=== PATIENT | male | born 1975 | race Caucasian/White ===

== ENCOUNTER 2023-01-22 06:16 | Day surgery (SDC) | payer SELFPAY, OTHER ==
[2023-01-22] VITALS (7 sets, daily range): BP systolic 99–115; BP diastolic 46–74; PULSE 60–65; RESP 16–18; TEMP 36.2–36.5; O2SAT 93–96; BMI 31.4
--- NOTE | 2023-01-22 | LIP_PTH ---
PATIENT: CLAUDETTE YEN LOC: [facility] [place] U#:[id number] AGE/SX: 47/M ROOM: RE01/22/[address]: Dr. Ryley Ga MD : 1975 BED: DIS: 01/22/2023 SPEC #: [id number] RECD: 01/22/23 15:30 STATUS: ERMIAS MICKEY #: [id number] JENNYFER: 01/22/23 00:[address]: Ryley Ga DEPT: SURGICAL PATHOLOGY RECD BY: Milton Tran ENTERED: 01/23/23 13:03 SP TYPE: LIPOMA OTHR DR: LEE Fraire Tissues: A - Soft tissues, NOS B - Soft tissues, NOS C - Soft tissues, NOS D - Soft tissues, NOS Procedures: Surgery Specimen Level III HEADER OPERATION: Excision of bilateral upper and bilateral lower extremity PRE-OP DIAGNOSIS: Multiple lipomas TISSUE SUBMITTED: A. Right anterior thigh lipoma, B. Dorsal right forearm lipoma, C. Roberto-lateral left thigh lipoma, D. Dorsal aspect left upper arm lipoma MICROSCOPIC DIAGNOSIS A. Right anterior thigh lipoma, biopsy: Angiolipoma. B. Dorsal right forearm lipoma, biopsy: Angiolipoma. C. Roberto-lateral left thigh lipoma, biopsy: Angiolipoma. D. Dorsal aspect left upper arm lipoma, biopsy: Angiolipoma. AM:cornelio 01/24/23 MICROSCOPIC DESCRIPTION Slides are reviewed. GROSS DESCRIPTION A. Received in fixative is one container labeled with the patient name and designated lipoma. The specimen consists of a lobulated piece of adipose tissue measuring 3 x 1.5 x 1.5 cm. Sections reveal yellow adipose cut surfaces without areas of hemorrhage, necrosis or cystic degeneration. Fabrication Supervisor sections are submitted in one cassette. B. Received in fixative is one container labeled with the patient name and designated lipoma. The specimen consists of a lobulated piece of adipose tissue measuring 1.5 x 1 x 0.5 cm. Sections reveal yellow adipose cut surfaces without areas of hemorrhage, necrosis or cystic degeneration. Entire specimen is submitted in one cassette. C. Received in fixative is one container labeled with the patient name and designated lipoma. The specimen consists of a lobulated piece of adipose tissue measuring 1.5 x 1.5 x 1.0 cm. The external surface is inked. Sections reveal yellow adipose cut surfaces without areas of hemorrhage, necrosis or cystic degeneration. The specimen is bisected and entirely in one cassette. D. Received in fixative is one container labeled with the patient name and designated lipoma. The specimen consists of a lobulated piece of adipose tissue measuring 1 x 1 x 0.5 cm. Sections reveal yellow adipose cut surfaces without areas of hemorrhage, necrosis, or cystic degeneration. The specimen is bisected and entirely in one cassette. /SJ:cc 01/23/23 TC1: CPT:10716 x4
[2023-01-22] MEDS: Lactated Ringers 1,000 ML 15 ML IV (06:59)
--- NOTE | 2023-01-22 08:00 | PCM.HP.BLA ---
History and Physical Date of Admission: 01/22/23 OFFICE VISIT Date of Service: 01/09/23 MR#: [id number] Acct: [id number] Name: CLAUDETTE WILLINGHAM Rep #: [id number] : 1975 Provider: Dr. Ryley Ga MD Age/Sex: 47/M Location: [facility] Status: Signed Intake Vital Signs 01/10/2308:36 Height 5 ft 6 in Weight: 197 lb 8 oz BMI 31.8 BP 123/76 H Blood Pressure Location Rt brachial Position Sitting Respiration 17 Pulse 71 Pulse Source Monitor Temp 97.5 F L Temp Source Tympanic Intake Visit Reasons: LIPOMA ON ARM Is patient in pain?: Yes Allergies No Known Allergies Allergy (Unverified 01/09/23 12:06) [facility] Medical History (Updated 01/09/23 @ 20:[address] Ryley Ga MD) Screening due HPI HPI HPI: Patient is a 47-year-old male who presents for evaluation of numerous lipomas. He presents valuation from [employer]. He presents today in the company of his . He states that he has noticed these masses for up to the last 5 to 10 years. He has not noticed any significant growth of 2 is on his bilateral upper extremities, but admits to some growth initially of a lesion noted on his right hip. He denies any associated pain or discomfort. He has not experienced any redness, drainage, or signs of infection with any of the sites. He has never undergone excision of prior lipoma. He states he simply presents today to seek a second opinion about the management of these findings. When asked about the cause of the soft tissue lesions, I did introduce the association with polyposis syndromes and this led to a conversation around patient's GI history. He notes a prior evaluation with Cologuard, but denies any previous evaluation by colonoscopy. He does have a family history of a maternal aunt who was diagnosed with colon cancer in her late 50s and ultimately succumbed to this diagnosis. He is unfamiliar with any familial diagnoses of inflammatory bowel disease or diverticulitis. Personally he denies any history of constipation, diarrhea, or blood per rectum. In continuing this history Mr. Willingham admits to a infrequent experience of heartburn in response to drinking too much coffee. He denies any history of reflux. Pertinent surgical history includes: Prior repair of inguinal hernia ROS General General: No weight change, appetite, fatigue, colon cancer, breast cancer or weakness HEENT HEENT: No difficulty swallowing, eye injury, eye surgery, swollen glands or hoarseness Endo Endocrine: No thyroid disease, diabetes mellitus, thyroid cancer, Hair loss, heat intolerance or cold intolerance Skin Skin: No rash or changing moles Breast Breast: No left breast lump, right breast lump, nipple discharge, breast pain, abnormal mammogram, abnormal US or breast enlargement Musc Musculoskeletal: No back problems, arthritis, rheumatoid arthritis, gout or joint pain Cardio Cardiovascular: No murmur, pacemaker, heart disease, atrial fibrillation, high blood pressure, heart attack, heart stent, palpitations, shortness of breat with exertion or chest pain Psych Psychiatric: No depression, anxiety or hearing voices Resp Respiratory: No shortness of breath, No sleep apnea, No cough, No COPD, No asthma, No emphysema and No wheezing Gastro Gastrointestinal: No abdominal pain, No nausea or vomiting, No diarrhea, No constipation, No blood in stool, No acid reflux, No hemorrhoids, No ulcers, No gallbladder problem and No black,tarry stools Robert Hematologic: No blood thinners, No blood disorders, No bleeding, No anemia and No blood clots Neuro Neurologic: No system reviewed and no additional complaints, except as documented, No as per HPI, No abnormal gait, No abnormal hearing, No abnormal movements, No abnormal speech, No behavioral changes, No burning sensations, No confusion, No convulsions, No disequilibrium, No dizziness, No localized weakness, No frequent falls, No headache(s), No lack of coordination, No loss of vision, No memory loss, No numbness, No other visual disturbances, No radicular pain, No restless legs, No sensory deficit, No syncope, No tingling, No tremor(s), No weakness and No other Exam Const General: cooperative, comfortable and no acute distress Orientation: alert, awake and oriented x3 Resp Effort & Inspection: normal respiratory effort GI Other: Mildly obese, no visible scars, visible umbilical herniation containing fat with an estimated fascial defect of 1.5 cm. Tenderness with this exam, but otherwise nontender to palpation x4 quadrants Extrem Other: Soft subcutaneous mass is estimated to be 1.5 cm in diameter located along patient's right dorsal forearm and left upper arm. A third lesion estimated at 4 cm x 2 cm is located on the anterior aspect of patient's right hip, superficially. There is no tenderness with exam of these areas. This latter area appears to be outside of the expected vicinity of the inguinal lymph node chain. Assessment and Plan Assessment and Plan (1) Multiple lipomas: Status: Acute Comment: This is a 47-year-old male who presents with probable multiple lipomas of the bilateral upper extremities as well as the right hip. Following the conclusion of our visit, I am informed by our operating room scheduler that the patient also has a probable lesion of his left lower extremity. He denies any significant symptoms or growth, but does wish for excision. Given the multiplicity of these lesions as well as the potential for some depth and some discomfort with removal of his right hip lesion, in particular, I have recommended excision under sedation in the operating room. Mr. Willingham accepts this mentation and procedure to be scheduled Plan: Excision of multiple lipomas under MAC sedation to be scheduled (2) Family hx of colon cancer requiring screening colonoscopy: Status: Acute Comment: 47-year-old male with history of multiple soft tissue masses and family history of colon cancer in a maternal aunt diagnosed before the age of 60. Given patient's present age and his family history I have recommended pursuing screening colonoscopy. Mr. Willingham states he sees the merit and this recommendation and wishes to proceed as described. Therefore I detailed the need for a preprocedure prep and discussed periprocedural logistics. Plan: Screening colonoscopy under local MAC. Date to be set. (3) Umbilical hernia without obstruction and without gangrene: Status: Acute Comment: Incidental finding of fat incarcerated umbilical hernia. This is a small fascial defect estimated at 1.5 cm. Intervention recommended, but on nonurgent basis. Patient wishes to consider this further. Red flag symptoms provided. Plan: Watchful waiting for now based on patient preference I have examined the patient and the H&P has been reviewed. There are no clinical changes since date of exam. Post procedure activity restrictions and wound care instructions were reviewed. The lipomatous sites were also marked to facilitate localization during the procedure. Neither patient nor spouse have any further questions. Proceed to the operating room for excision of lipomas as discussed above.
[2023-01-22] MEDS: Cefazolin 2 GM in 0.9% Normal Saline 100 ML IV (08:04)
[2023-01-22] MEDS: Bupivacaine 0.25% 30 ML Vial (08:38)
--- NOTE | 2023-01-22 09:08 | PCM.OPRPT ---
Report of Operation Date of Procedure: 01/22/23 Pre-Operative Diagnosis: Extremity lipomatous masses x4 Post-Operative Diagnosis: Same Surgery/Procedure Performed:: Excision of extremity subcutaneous masses x4 Description of Surgical Findings:: ? Lipomatous masses of the right anterior thigh, left anterior lateral thigh, dorsal right forearm and dorsal left upper arm Surgeon: Ryley Ga Type of Anesthesia: General/Supplemental Specimen's removed: 1. Right anterior thigh mass 2. Dorsal right forearm mass 3. Anterior lateral left thigh mass 4. Dorsal aspect of left upper arm mass Drains: None Estimated Blood Loss (mL): 5 Description of Procedure: After appropriate identification the preoperative holding area patient was brought to the operating room where he was positioned in a supine position. There he was administered a local MAC. He was then position further with his arms crossing his chest to expose there dorsal aspects. His arms were secured in this position with soft wrist restraints tied to the contralateral aspect of the operating room table. Pressure points were padded with foam. Preoperative antibiotics were infused. His bilateral upper and lower extremities were exposed and prepped around the areas that had been preoperatively marked. He was then draped in usual sterile fashion using towels. A formal timeout followed to confirm both patient and procedure. I then instilled a wheal local anesthetic (0.25% bupivacaine plain) and made an approximately 3 cm incision over the anterior right thigh subcutaneous mass. This was carried deeply through the dermal tissue with use of electrocautery to maintain hemostasis as we proceeded. I then visualized the lipomatous subcutaneous mass and used a combination of blunt dissection and energy to free this mass from the surrounding soft tissue. Mass was then completely extirpated and passed off the operative field for pathology. The resulting cavity was inspected for hemostasis and was found to be largely intact. The cavity was packed and we proceeded to move onto the right upper extremity, left lower extremity, and left upper extremity, respectively. The same sequence of instilling a wheal of local anesthetic followed by incision and sharp dissection followed with each site. A total volume of 10 mL 0.25% bupivacaine was used. All incisions were approximately 3 cm in length. After ensuring hemostasis of each cavity, 3-0 Vicryl was used to perform interrupted deep dermal sutures and the skin was closed with a running 4-0 Monocryl using a subcuticular technique. Dermabond was applied and the patient's sedation was lightened and he was transferred to the PACU bed for his ongoing care. Grafts/Implants Used: None Complications None Admit VTE Documentation VTE Mechan Device Prophylaxis: SCD's
--- NOTE | 2023-01-22 10:07 | DCINST_ITS ---
Discharge Instructions Diet Discharge Diet: No restrictions Activity Discharge Activity: May Not Drive (No driving while using narcotic pain medication) and May Shower Ice area for (Minutes): 20 Lifting Restrictions: Limit lifting to less than 15 pounds for 2 weeks postop Dressing / Incision Call your doctor if your incision/area has: Continuous Slow Oozing, Increased Pain/ Swelling, Increased Redness, Foul Smelling Discharge and Swelling at the incision site Call your doctor if you observe: Fever of 101 or Higher, Numbness or Tingling and Uncontrolled pain Cleanse incision/area with: Soap & Water Follow Up Care Please Follow Up With: Ryley Ga MD When: 1.5-2 weeks postop Test Results: Test results from this visit will be discussed in further detail at your follow- up appointment, if applicable. Discharge Plan Admission Primary Reason for Your Visit: Excision of subcutaneous masses Attending Provider: Ryley Ga Primary Care Provider: Trey Ramsey Discharge Orders/Prescriptions Prescriptions: New hydrocodone-acetaminophen 5-325 mg tablet 1 tab PO Q6H PRN (Reason: pain) 3 Days Qty: 10 0RF No Action NK Referrals / Follow Up: Trey Ramsey PA [Primary Care Provider] - Disposition Disposition (needs filled in before D/C Order can be placed): Home, Self Care
== END 2023-01-22 10:19 | disposition home or self-care (01) ==
LOC: SDC 06:23 → AC 06:23
PROVIDERS: PCP Physician Assistant; Referring Provider Surgery; Visit Provider Surgery
PROC: (CPT 11406; principal; 2023-01-22 07:45)
DX: D17.9 Benign lipomatous neoplasm, unspecified (principal); R12 Heartburn; Z80.0 Family history of malignant neoplasm of digestive organs; Z89.029 Acquired absence of unspecified finger(s); Z87.19 Personal history of other diseases of the digestive system
CPT/HCPCS: 11406; 88304; J7120; J2405

== ENCOUNTER 2023-02-07 12:19 | Day surgery (SDC) | payer SELFPAY, OTHER ==
[2023-02-07] VITALS (7 sets, daily range): BP systolic 95–121; BP diastolic 51–61; PULSE 53–64; RESP 16; TEMP 36.5–36.7; O2SAT 97–99; BMI 30.9
[2023-02-07] MEDS: Lactated Ringers 1,000 ML 15 ML IV (12:49)
--- NOTE | 2023-02-07 13:30 | COLBX_PTH ---
PATIENT: CLAUDETTE YEN LOC: [facility] U#:[id number] AGE/SX: 47/M ROOM: RE02/07/[address]: Dr. Ryley Ga MD : 1975 BED: DIS: 02/07/2023 SPEC #: [id number] RECD: 02/07/23 14:27 STATUS: ERMIAS MICKEY #: [id number] JENNYFER: 02/07/23 13:[address]: Ryley Ga DEPT: SURGICAL PATHOLOGY RECD BY: Wen Lloyd ENTERED: 02/10/23 09:30 SP TYPE: COLON BX OTHR DR: LEE Fraire Tissues: A - Cecum, NOS B - Transverse colon C - Descending colon D - Sigmoid colon biopsy Procedures: Surgery Specimen Level IV HEADER OPERATION: Colonoscopy (MAC), biopsy PRE-OP DIAGNOSIS: Family history of colon cancer, screening TISSUE SUBMITTED: A - Cecal mucosa biopsy, B - Distal transverse biopsy, C - Descending biopsy, D - Sigmoid biopsy MICROSCOPIC DIAGNOSIS A. Cecal mucosa, biopsy: Melanosis coli. B. Distal transverse colon, biopsy: Melanosis coli. C. Descending colon, biopsy: Melanosis coli. D. Sigmoid colon, biopsy: Melanosis coli. AM:nichelle 02/11/2023 MICROSCOPIC DESCRIPTION Slides are reviewed. GROSS DESCRIPTION A - Received in fixative is one container labeled with the patient's name and designated cecal mucosa biopsy. The specimen consists of multiple irregular fragments of light sharpe soft tissue that in aggregate measure 1.0 x 0.3 x 0.1 cm. The specimen is totally submitted in one cassette. B - Received in fixative is one container labeled with the patient's name and designated distal transverse biopsy. The specimen consists of two irregular fragments of light sharpe soft tissue that in aggregate measure 0.6 x 0.3 x 0.1 cm. The specimen is totally submitted in one cassette. C - Received in fixative is one container labeled with the patient's name and designated descending biopsy. The specimen consists of two irregular fragments of light sharpe soft tissue that in aggregate measure 0.6 x 0.3 x 0.1 cm. The specimen is totally submitted in one cassette. D - Received in fixative is one container labeled with the patient's name and designated sigmoid biopsy. The specimen consists of multiple irregular fragments of light sharpe soft tissue that in aggregate measure 0.8 x 0.3 x 0.1 cm. The specimen is totally submitted in one cassette. / SJ:nichelle 02/10/2023 TC:5 CPT: 27379 x4
--- NOTE | 2023-02-07 13:34 | HP.PCM_ITS ---
History and Physical Date of Admission: 02/07/23 Date of Service: 01/09/23 MR#: [id number] Acct: [id number] Name: CLAUDETTE WILLINGHAM Rep #: [id number] : 1975 Provider: Dr. Ryley Ga MD Age/Sex: 47/M Location: [facility] Status: Signed Intake Vital Signs 01/10/2308:36 Height 5 ft 6 in Weight: 197 lb 8 oz BMI 31.8 BP 123/76 H Blood Pressure Location Rt brachial Position Sitting Respiration 17 Pulse 71 Pulse Source Monitor Temp 97.5 F L Temp Source Tympanic Intake Visit Reasons: LIPOMA ON ARM Is patient in pain?: Yes Allergies No Known Allergies Allergy (Unverified 01/09/23 12:06) [facility] Medical History (Updated 01/09/23 @ 20:[address] Ryley Ga MD) Screening due HPI HPI HPI: Patient is a 47-year-old male who presents for evaluation of numerous lipomas. He presents valuation from [employer]. He presents today in the company of his . He states that he has noticed these masses for up to the last 5 to 10 years. He has not noticed any significant growth of 2 is on his bilateral upper extremities, but admits to some growth initially of a lesion noted on his right hip. He denies any associated pain or discomfort. He has not experienced any redness, drainage, or signs of infection with any of the sites. He has never undergone excision of prior lipoma. He states he simply presents today to seek a second opinion about the management of these findings. When asked about the cause of the soft tissue lesions, I did introduce the association with polyposis syndromes and this led to a conversation around patient's GI history. He notes a prior evaluation with Cologuard, but denies any previous evaluation by colonoscopy. He does have a family history of a maternal aunt who was diagnosed with colon cancer in her late 50s and ultimately succumbed to this diagnosis. He is unfamiliar with any familial diagnoses of inflammatory bowel disease or diverticulitis. Personally he denies any history of constipation, diarrhea, or blood per rectum. In continuing this history Mr. Willingham admits to a infrequent experience of heartburn in response to drinking too much coffee. He denies any history of reflux. Pertinent surgical history includes: Prior repair of inguinal hernia ROS General General: No weight change, appetite, fatigue, colon cancer, breast cancer or weakness HEENT HEENT: No difficulty swallowing, eye injury, eye surgery, swollen glands or hoarseness Endo Endocrine: No thyroid disease, diabetes mellitus, thyroid cancer, Hair loss, heat intolerance or cold intolerance Skin Skin: No rash or changing moles Breast Breast: No left breast lump, right breast lump, nipple discharge, breast pain, abnormal mammogram, abnormal US or breast enlargement Musc Musculoskeletal: No back problems, arthritis, rheumatoid arthritis, gout or joint pain Cardio Cardiovascular: No murmur, pacemaker, heart disease, atrial fibrillation, high blood pressure, heart attack, heart stent, palpitations, shortness of breat with exertion or chest pain Psych Psychiatric: No depression, anxiety or hearing voices Resp Respiratory: No shortness of breath, No sleep apnea, No cough, No COPD, No asthma, No emphysema and No wheezing Gastro Gastrointestinal: No abdominal pain, No nausea or vomiting, No diarrhea, No constipation, No blood in stool, No acid reflux, No hemorrhoids, No ulcers, No gallbladder problem and No black,tarry stools Robert Hematologic: No blood thinners, No blood disorders, No bleeding, No anemia and No blood clots Neuro Neurologic: No system reviewed and no additional complaints, except as documented, No as per HPI, No abnormal gait, No abnormal hearing, No abnormal movements, No abnormal speech, No behavioral changes, No burning sensations, No confusion, No convulsions, No disequilibrium, No dizziness, No localized weakness, No frequent falls, No headache(s), No lack of coordination, No loss of vision, No memory loss, No numbness, No other visual disturbances, No radicular pain, No restless legs, No sensory deficit, No syncope, No tingling, No tremor(s), No weakness and No other Exam Const General: cooperative, comfortable and no acute distress Orientation: alert, awake and oriented x3 Resp Effort & Inspection: normal respiratory effort GI Other: Mildly obese, no visible scars, visible umbilical herniation containing fat with an estimated fascial defect of 1.5 cm. Tenderness with this exam, but otherwise nontender to palpation x4 quadrants Extrem Other: Soft subcutaneous mass is estimated to be 1.5 cm in diameter located along patient's right dorsal forearm and left upper arm. A third lesion estimated at 4 cm x 2 cm is located on the anterior aspect of patient's right hip, superficially. There is no tenderness with exam of these areas. This latter area appears to be outside of the expected vicinity of the inguinal lymph node chain. Assessment and Plan Assessment and Plan (1) Multiple lipomas: Status: Acute Comment: This is a 47-year-old male who presents with probable multiple lipomas of the bilateral upper extremities as well as the right hip. Following the conclusion of our visit, I am informed by our surgery specialist that the patient also has a probable lesion of his left lower extremity. He denies any significant symptoms or growth, but does wish for excision. Given the multiplicity of these lesions as well as the potential for some depth and some discomfort with removal of his right hip lesion, in particular, I have recommended excision under sedation in the operating room. Mr. Willingham accepts this mentation and procedure to be scheduled Plan: Excision of multiple lipomas under MAC sedation to be scheduled (2) Family hx of colon cancer requiring screening colonoscopy: Status: Acute Comment: 47-year-old male with history of multiple soft tissue masses and family history of colon cancer in a maternal aunt diagnosed before the age of 60. Given patient's present age and his family history I have recommended pursuing screening colonoscopy. Mr. Willingham states he sees the merit and this recommendation and wishes to proceed as described. Therefore I detailed the need for a preprocedure prep and discussed periprocedural logistics. Plan: Screening colonoscopy under local MAC. Date to be set. (3) Umbilical hernia without obstruction and without gangrene: Status: Acute Comment: Incidental finding of fat incarcerated umbilical hernia. This is a small fascial defect estimated at 1.5 cm. Intervention recommended, but on nonurgent basis. Patient wishes to consider this further. Red flag symptoms provided. Plan: Watchful waiting for now based on patient preference I have examined the patient the following changes are noted: Patient confirms that he has healed well following his lipoma excision x4 on 01/22/2023. His wounds were examined and indeed all are found to be intact. I reviewed his pathology with him to include the pathology report which showed angiolipomas x4 and informed him that these are benign masses that were removed. He confirms that he has completed his prep successfully for today's planned screening colonoscopy given his seemingly increased risk for colon cancer through his family history. The procedure expectations were reviewed and there are no further questions from him or his spouse. We will proceed to endoscopy suite as discussed above.
--- NOTE | 2023-02-07 14:21 | OP.CCLET_ITS ---
02/07/2023 Manuel Fraire Re : Colonoscopy procedure for Jonathan Willingham Dear Braulio This procedure was performed on Tuesday, February 07, 2023. My impressions and recommendations are as follows: Impressions : - Tortuous colon. - The examination was otherwise normal on direct and retroflexion views. - Four biopsies were obtained in the sigmoid colon, in the descending colon, in the transverse colon and in the cecum. Recommendations : - Discharge patient to home (via wheelchair). - Resume previous diet today. - Continue present medications. - Await pathology results. - Repeat colonoscopy date to be determined after pending pathology results are reviewed for screening purposes. - Telephone my office for pathology results in 1 week. My findings are described in the full procedure note, which is enclosed. If I can be of further assistance, please feel free to contact me at Doctor phone number(s): , Work: . Sincerely, Ryley Ga MD 02/07/2023 2:21:12 PM This report has been signed electronically.
--- NOTE | 2023-02-07 14:21 | OP.COLON_ITS ---
Patient Name: Jonathan Willingham Procedure Date: 02/07/2023 12:55 PM Date of : 1975 Age: 47 Procedure: Colonoscopy Indications: Screening for colon cancer: Family history of colorectal cancer in distant relative(s) before age 60 Providers: Ryley Ga MD Medicines: See the Anesthesia note for documentation of the administered medications Patient Profile: Last Colonoscopy: none. The patient's first colonoscopy is today. Complications: No immediate complications. Estimated blood loss: Minimal. Procedure: Pre-Anesthesia Assessment: - The heart rate, respiratory rate, oxygen saturations, blood pressure, adequacy of pulmonary ventilation, and response to care were monitored throughout the procedure. After I obtained informed consent, the scope was passed under direct vision. Throughout the procedure, the patient's blood pressure, pulse, and oxygen saturations were monitored continuously. The Colonoscope was introduced through the anus and advanced to the cecum, identified by its appearance. The colonoscopy was performed without difficulty. The patient tolerated the procedure well. The quality of the bowel preparation was adequate to identify polyps. Scope In: 1:41:38 PM Scope Withdrawal Time 0 hours 22 minutes 52 seconds Scope Out: 2:08:55 PM Total Procedure Duration Time 0 hours 27 minutes 17 seconds Findings: The sigmoid colon was moderately tortuous. Advancing the scope required using scope torsion. flate hypopigmentation spots pancolonic, Biopsies were taken with a cold forceps for histology. Four biopsies were obtained with hot forceps for histology in a targeted manner in the sigmoid colon, in the descending colon, in the transverse colon and in the cecum. Estimated blood loss was minimal. The exam was otherwise without abnormality on direct and retroflexion views. Impression: - Tortuous colon. - The examination was otherwise normal on direct and retroflexion views. - Four biopsies were obtained in the sigmoid colon, in the descending colon, in the transverse colon and in the cecum. Recommendation: - Discharge patient to home (via wheelchair). - Resume previous diet today. - Continue present medications. - Await pathology results. - Repeat colonoscopy date to be determined after pending pathology results are reviewed for screening purposes. - Telephone my office for pathology results in 1 week. Procedure Code(s): --- Professional --- 76756, Colonoscopy, flexible; with removal of tumor(s), polyp(s), or other lesion(s) by hot biopsy forceps Diagnosis Code(s): --- Professional --- Z12.11, Encounter for screening for malignant neoplasm of colon Z80.0, Family history of malignant neoplasm of digestive organs Q43.8, Other specified congenital malformations of intestine CPT copyright 2017 [employer]. All rights reserved. The codes documented in this report are preliminary and upon volunteer services manager review may be revised to meet current compliance requirements. Ryley Ga MD 02/07/2023 2:21:12 PM This report has been signed electronically. Number of Addenda: 0 Note Initiated On: 02/07/2023 12:55 PM
== END 2023-02-07 15:14 | disposition home or self-care (01) ==
LOC: EN 12:20 → AC 12:21
PROVIDERS: PCP Physician Assistant; Referring Provider Physician Assistant; Visit Provider Surgery
PROC: 0DJD8ZZ Inspection of Lower Intestinal Tract, Via Natural or Artificial Opening Endoscopic (ICD-10-PCS; CPT 45378; principal; 2023-02-07 13:25)
DX: Z12.11 Encounter for screening for malignant neoplasm of colon (principal); R12 Heartburn; Z80.0 Family history of malignant neoplasm of digestive organs; Q43.8 Other specified congenital malformations of intestine; K63.89 Other specified diseases of intestine
CPT/HCPCS: 45384; 88305; J7120; J2405